=== PATIENT | female | born 1970 | race Caucasian/White ===

== ENCOUNTER 2022-02-24 21:57 | Emergency (ER) | payer SELFPAY ==
[2022-02-24 22:06] VITALS: BP 157/90; PULSE 83; TEMP 98.2; BMI 29.2
== END 2022-02-24 23:02 | disposition home or self-care (01) ==
LOC: JERFT 21:57 → JER 21:57 → JERFT 23:02
DX: L03.115 Cellulitis of right lower limb (principal)
CPT/HCPCS: 87070; 87205; 99283-25